=== PATIENT | male | born 1995 | race Two or more races ===

== ENCOUNTER 2021-10-14 00:07 | Inpatient (IN) | payer OTHER ==
[~2021-10-14] VITALS: Ht 175.3 cm; Wt 77.3 kg
[2021-10-14] MEDS ORDERED: OLANZapine 5 MG TABLET PO ONE (00:30)
[2021-10-14] MEDS ORDERED: DiphenhydrAMINE HCL 25 MG CAPSULE PO ONE (00:30)
[2021-10-14] MEDS ORDERED: GREEN PO (00:57)
[2021-10-14 00:58] LABS: BASOPHILS % (AUTO) 0.7 % (0.0-2.0); EOSINOPHILS % (AUTO) 0.7 % (1.0-6.0); HEMATOCRIT 43.9 % (41-53); HEMOGLOBIN 14.8 g/dL (13.5-17.5); LYMPHOCYTES # (AUTO) 2.3 K/uL (1.0-4.8); LYMPHOCYTES % (AUTO) 31.4 % (22.0-44.0); MEAN CORPUSCULAR HEMOGLOBIN 29.4 pg (26.0-34.0); MEAN CORPUSCULAR HGB CONC 33.8 G/dL (31.0-37.0); MEAN CORPUSCULAR VOLUME 87 fL (80-100); MONOCYTES # (AUTO) 0.7 K/uL (0.1-1.0); MONOCYTES % (AUTO) 9.6 % (2.0-9.0); NEUTROPHILS # (AUTO) 4.2 K/uL (1.8-7.7); NEUTROPHILS % (AUTO) 57.6 % (40.0-70.0); PLATELET COUNT (AUTO) 248 K/uL (150-450); RED BLOOD CELL COUNT(AUTO) 5.05 MIL/uL (4.50-5.90); RED CELL DISTRIBUTION WIDTH 14.7 % (11.5-14.5)
[2021-10-14 01:05] LABS: ANION GAP 8 mmol/L (8-16); CARBON DIOXIDE 26 mmol/L (22-29); CHLORIDE 103 mmol/L (98-107); CREATININE 0.86 mg/dL (0.60-1.30); GLOMERULAR FILTR. RATE CALC > 60 mL/min (>60); GLUCOSE,RANDOM 95 mg/dL (70-110); POTASSIUM 4.1 mmol/L (3.5-5.1); SODIUM SERUM 137 mmol/L (136-145); UREA NITROGEN, BLOOD 5 mg/dL (7-18)
[2021-10-14 01:11] LABS: APPEARANCE,URINE CLEAR (CLEAR); BILIRUBIN,URINE NEGATIVE (NEGATIVE); GLUCOSE, URINE (UA) NEGATIVE (NEGATIVE); KETONES,URINE >=80 mg/dL (NEGATIVE); LEUKOCYTE ESTERASE ,URINE NEGATIVE (NEGATIVE); NITRATE,URINE NEGATIVE (NEGATIVE); OCCULT BLOOD,URINE NEGATIVE (NEGATIVE); PROTEIN,URINE NEGATIVE (NEGATIVE)
[2021-10-14 01:11] LABS: COVID AG,FIA SOURCE NASAL SWAB
[2021-10-14 01:17] LABS: AMPHET/METH SCREEN,URINE NEGATIVE (NEGATIVE); BARBITURATE SCREEN, URINE NEGATIVE (NEGATIVE); BENZODIAZEPINES SCREEN,URINE NEGATIVE (NEGATIVE); CANNABINOID SCREEN,URINE POSITIVE (NEGATIVE); COCAINE SCREEN,URINE NEGATIVE (NEGATIVE); METHADONE SCREEN, URINE NEGATIVE (NEGATIVE); OPIATE SCREEN,URINE NEGATIVE (NEGATIVE)
[2021-10-14 01:19] LABS: PHENCYCLIDINE SCREEN,URINE NEGATIVE (NEGATIVE)
[2021-10-14 01:36] LABS: BACTERIA,URINE None Seen /HPF (None Seen); RBC,URINE 0-2 /HPF (0-2); WBC,URINE 0-2 /HPF (0-5)
[2021-10-14 02:21] LABS: ALANINE AMINOTRANSFERASE 89 U/L (12-78); ALBUMIN 4.1 g/dL (3.4-5.0); ALKALINE PHOSPHATASE 125 U/L (46-116); ASPARTATE AMINOTRANSFERASE 69 U/L (15-37); BILIRUBIN,TOTAL 0.7 mg/dL (0.1-1.0); CHOL/HDL RATIO 2.7 (4.2-7.3); CHOLESTEROL 108 mg/dL (131-200); FREE T4 (FREE THYROXINE) 1.05 ng/dL (0.76-1.46); HDL CHOLESTEROL 40 mg/dL (40-60); LDL CHOL (CALC.) 59 mg/dL (0-130); THYROID STIMULATING HORMONE 1.54 uIU/mL (0.36-3.74); TOTAL PROTEIN, SERUM 7.8 g/dL (6.4-8.2); TRIGLYCERIDES 47 mg/dL (15-150)
[2021-10-14 03:35] VITALS: BP 113/59
[2021-10-14 09:17] VITALS: BP_SYST 138; BP_SYST 46; BP_DIAS 40; BP_DIAS 72
[2021-10-14] MEDS: OLANZapine 7.5 MG TABLET PO SCH ×2 (13:51→20:39)
[2021-10-14] MEDS: HydrOXYzine PAMOATE 25 MG CAPSULE PO SCH ×2 (13:51→20:39)
[2021-10-14] MEDS: SERTRALINE HCL 50 MG TABLET PO SCH (13:51)
[2021-10-14] MEDS: HALOPERIDOL 5 MG TABLET PO PRN ×2 (17:21→23:42)
[2021-10-14 17:57] VITALS: BP 105/79
[2021-10-14 20:20] VITALS: BP 133/98
[2021-10-14] MEDS ORDERED: MAGNESIUM HYDROXIDE SUSPENSION 30 ML UDCUP PO PRN (23:00)
[2021-10-14] MEDS ORDERED: ALBUTEROL SULFATE 2.5 MG/0.5 ML NEB SOLUTION NEB PRN (23:00)
[2021-10-14] MEDS ORDERED: BISACODYL 10 MG RECTAL RECTAL SUPPOSITORY PR PRN (23:00)
[2021-10-14] MEDS ORDERED: ONDANSETRON HCL 4 MG/2 ML VIAL IVP PRN (23:00)
[2021-10-14] MEDS ORDERED: ACETAMINOPHEN 325 MG TABLET PO PRN (23:00)
[2021-10-14] MEDS ORDERED: IPRATROPIUM BROMIDE 0.5 MG/2.5 ML NEB SOLUTION NEB PRN (23:00)
[2021-10-14] MEDS: HEPARIN SODIUM,PORCINE 5,000 UNITS/ML VIAL SQ SCH (23:42)
[2021-10-15 00:36] VITALS: BP 128/76
[2021-10-15 04:16] VITALS: BP 126/68
[2021-10-15 04:18] VITALS: BP 128/77
[2021-10-15 08:22] VITALS: BP 138/72
[2021-10-15] MEDS: PANTOPRAZOLE SODIUM 40 MG/VIAL IVP SCH (09:00)
[2021-10-15] MEDS: SERTRALINE HCL 50 MG TABLET PO SCH (10:10)
[2021-10-15] MEDS: HydrOXYzine PAMOATE 25 MG CAPSULE PO SCH ×2 (10:10→20:55)
[2021-10-15] MEDS: HALOPERIDOL 5 MG TABLET PO PRN (10:11)
[2021-10-15] MEDS: OLANZapine 7.5 MG TABLET PO SCH ×2 (10:11→20:55)
[2021-10-15] MEDS: HEPARIN SODIUM,PORCINE 5,000 UNITS/ML VIAL SQ SCH ×3 (10:18→23:38)
[2021-10-15 16:40] VITALS: BP 138/72
[2021-10-15 21:10] VITALS: BP 128/73
[2021-10-16 01:34] VITALS: BP 130/72
[2021-10-16 03:57] VITALS: BP 136/68
[2021-10-16 08:05] VITALS: BP 117/65
[2021-10-16] MEDS: PANTOPRAZOLE SODIUM 40 MG/VIAL IVP SCH (09:00)
[2021-10-16] MEDS: SERTRALINE HCL 50 MG TABLET PO SCH (09:48)
[2021-10-16] MEDS: OLANZapine 7.5 MG TABLET PO SCH ×2 (09:49→21:16)
[2021-10-16] MEDS: HALOPERIDOL 5 MG TABLET PO PRN (09:49)
[2021-10-16] MEDS: HydrOXYzine PAMOATE 25 MG CAPSULE PO SCH ×2 (09:50→21:16)
[2021-10-16] MEDS: HEPARIN SODIUM,PORCINE 5,000 UNITS/ML VIAL SQ SCH ×3 (09:50→21:16)
[2021-10-16 16:16] VITALS: BP 131/78
[2021-10-16 19:42] VITALS: BP 136/74
[2021-10-16] MEDS: ZOLPIDEM TARTRATE 5 MG TABLET PO PRN (23:46)
[2021-10-17 04:33] VITALS: BP 133/78
[2021-10-17 08:44] VITALS: BP 149/78
[2021-10-17] MEDS: PANTOPRAZOLE SODIUM 40 MG/VIAL IVP SCH (09:00)
[2021-10-17] MEDS: HEPARIN SODIUM,PORCINE 5,000 UNITS/ML VIAL SQ SCH ×2 (10:33→16:43)
[2021-10-17] MEDS: SERTRALINE HCL 50 MG TABLET PO SCH (10:33)
[2021-10-17] MEDS: HALOPERIDOL 5 MG TABLET PO PRN ×2 (10:33→21:30)
[2021-10-17] MEDS: HydrOXYzine PAMOATE 25 MG CAPSULE PO SCH ×2 (10:33→21:38)
[2021-10-17] MEDS: OLANZapine 7.5 MG TABLET PO SCH ×2 (10:33→21:29)
[2021-10-17 20:26] VITALS: BP 128/68
[2021-10-18] MEDS: HEPARIN SODIUM,PORCINE 5,000 UNITS/ML VIAL SQ SCH ×3 (00:52→17:42)
[2021-10-18] MEDS: ZOLPIDEM TARTRATE 5 MG TABLET PO PRN (00:52)
[2021-10-18 01:50] VITALS: BP 117/57
[2021-10-18 04:51] VITALS: BP 123/63
[2021-10-18 08:24] VITALS: BP 141/80
[2021-10-18] MEDS: PANTOPRAZOLE SODIUM 40 MG/VIAL IVP SCH (09:00)
[2021-10-18] MEDS: OLANZapine 7.5 MG TABLET PO SCH ×2 (10:04→21:19)
[2021-10-18] MEDS: SERTRALINE HCL 50 MG TABLET PO SCH (10:04)
[2021-10-18] MEDS: HydrOXYzine PAMOATE 25 MG CAPSULE PO SCH ×2 (10:05→21:19)
[2021-10-18 14:03] VITALS: BP 141/80
[2021-10-18 22:26] VITALS: BP 126/73
[2021-10-19 01:45] VITALS: BP 128/75
[2021-10-19 05:14] VITALS: BP 131/64
[2021-10-19] MEDS: HEPARIN SODIUM,PORCINE 5,000 UNITS/ML VIAL SQ SCH ×3 (08:00→16:00)
[2021-10-19 08:40] VITALS: BP 124/69
[2021-10-19] MEDS: PANTOPRAZOLE SODIUM 40 MG/VIAL IVP SCH (09:00)
[2021-10-19] MEDS: SERTRALINE HCL 50 MG TABLET PO SCH (09:15)
[2021-10-19] MEDS: OLANZapine 7.5 MG TABLET PO SCH ×2 (09:15→21:26)
[2021-10-19] MEDS: HydrOXYzine PAMOATE 25 MG CAPSULE PO SCH ×2 (09:16→21:26)
[2021-10-19] MEDS: HALOPERIDOL 5 MG TABLET PO PRN (09:21)
[2021-10-19 16:08] VITALS: BP 125/70
[2021-10-19 19:40] VITALS: BP 127/80
[2021-10-20] MEDS: HEPARIN SODIUM,PORCINE 5,000 UNITS/ML VIAL SQ SCH ×3 (00:16→15:58)
[2021-10-20] MEDS: PANTOPRAZOLE SODIUM 40 MG DR TABLET PO SCH (08:18)
[2021-10-20] MEDS: SERTRALINE HCL 50 MG TABLET PO SCH (08:18)
[2021-10-20] MEDS: OLANZapine 7.5 MG TABLET PO SCH ×2 (08:18→21:14)
[2021-10-20] MEDS: HydrOXYzine PAMOATE 25 MG CAPSULE PO SCH ×2 (08:18→21:13)
[2021-10-20 08:19] VITALS: BP 135/89
[2021-10-20 16:05] VITALS: BP 126/74
[2021-10-20 19:20] VITALS: BP 121/67
[2021-10-20] MEDS: ZOLPIDEM TARTRATE 5 MG TABLET PO PRN (21:12)
[2021-10-20] MEDS: DIVALPROEX SODIUM 500 MG DR TABLET PO SCH (21:13)
[2021-10-21] MEDS: HEPARIN SODIUM,PORCINE 5,000 UNITS/ML VIAL SQ SCH ×4 (00:40→23:53)
[2021-10-21] MEDS: SERTRALINE HCL 50 MG TABLET PO SCH (08:54)
[2021-10-21] MEDS: OLANZapine 7.5 MG TABLET PO SCH ×2 (08:54→21:04)
[2021-10-21] MEDS: PANTOPRAZOLE SODIUM 40 MG DR TABLET PO SCH (08:54)
[2021-10-21] MEDS: HydrOXYzine PAMOATE 25 MG CAPSULE PO SCH ×2 (08:54→21:04)
[2021-10-21] MEDS: DIVALPROEX SODIUM 500 MG DR TABLET PO SCH ×2 (08:54→21:04)
[2021-10-21 09:28] VITALS: BP 135/66
[2021-10-21 16:32] VITALS: BP 121/67
[2021-10-21 19:30] VITALS: BP 119/81
[2021-10-21] MEDS: ZOLPIDEM TARTRATE 5 MG TABLET PO PRN (23:55)
[2021-10-22 04:15] VITALS: BP 122/81
[2021-10-22] MEDS: SERTRALINE HCL 50 MG TABLET PO SCH (08:02)
[2021-10-22] MEDS: HEPARIN SODIUM,PORCINE 5,000 UNITS/ML VIAL SQ SCH ×2 (08:02→16:00)
[2021-10-22] MEDS: PANTOPRAZOLE SODIUM 40 MG DR TABLET PO SCH (08:02)
[2021-10-22] MEDS: OLANZapine 7.5 MG TABLET PO SCH (08:02)
[2021-10-22] MEDS: DIVALPROEX SODIUM 500 MG DR TABLET PO SCH (08:02)
[2021-10-22] MEDS: HydrOXYzine PAMOATE 25 MG CAPSULE PO SCH (08:02)
[2021-10-22 08:29] VITALS: BP 111/73
[2021-10-22] MEDS ORDERED: DIVA-112 PO (09:52)
[2021-10-22] MEDS ORDERED: SERT-158 PO (09:52)
[2021-10-22] MEDS ORDERED: OLAN7.5T22 PO (09:52)
[2021-10-22] MEDS ORDERED: HYDR-4808 PO (09:52)
[2021-10-22 16:19] VITALS: BP 119/77
== END 2021-10-22 16:30 | DRG 885 ==
LOC: EMS 00:08 → 6S 03:14
PROVIDERS: ADMIT Hospitalist; ATTEND Hospitalist
DX: F25.1 Schizoaffective disorder, depressive type (principal); F12.11 Cannabis abuse, in remission; R79.89 Other specified abnormal findings of blood chemistry; Z20.822 Contact with and (suspected) exposure to COVID-19; Z79.899 Other long term (current) drug therapy; Z87.891 Personal history of nicotine dependence; Z91.52 Personal history of nonsuicidal self-harm
CPT/HCPCS: 80053; 80061; 81001; 84439; 84443; 85025; 99285; C9113; G0480; J1644